=== PATIENT | female | born 1980 | race Two or more races ===

== ENCOUNTER 2018-09-21 10:01 | Outpatient (CLI) | payer OTHER ==
[~2018-09-21] VITALS: Ht 152.4 cm; Wt 71.7 kg
== END 2018-09-21 10:15 | disposition home or self-care (01) ==
LOC: OFIC 805 10:01
DX: G51.0 Bell's palsy (principal)

== ENCOUNTER 2018-09-28 05:32 | Inpatient (IN) | payer OTHER ==
[~2018-09-28] VITALS: Ht 157.5 cm; Wt 73.0 kg
== END 2018-09-30 15:56 | disposition home or self-care (01) | DRG 788 ==
LOC: LDR 05:32 → OB/GYN 12:08
PROVIDERS: ADMIT Specialist
PROC: 4A1HXCZ Monitoring of Products of Conception, Cardiac Rate, External Approach (ICD-10-PCS; 2018-09-28)
PROC: 10D00Z1 Extraction of Products of Conception, Low, Open Approach (ICD-10-PCS; principal; 2018-09-28 07:00)
DX: O34.211 Maternal care for low transverse scar from previous cesarean delivery (principal); O75.82 Onset (spontaneous) of labor after 37 completed weeks of gestation but before 39 completed weeks gestation, with delivery by (planned) cesarean section; Z3A.38 38 weeks gestation of pregnancy; Z37.0 Single live birth

== ENCOUNTER 2020-02-20 13:24 | Inpatient (IN) | payer OTHER ==
[~2020-02-20] VITALS: Ht 157.5 cm; Wt 68.9 kg
[2020-02-20] MEDS ORDERED: PRENATAL 19 TA1 EAC1 PO (15:19)
[2020-02-20] MEDS ORDERED: INTEGRA PLUS C1 EACH PO (15:19)
== END 2020-02-21 10:55 | disposition home or self-care (01) | DRG 833 ==
LOC: LDR 13:24
PROVIDERS: ADMIT Specialist; ATTEND Specialist
PROC: 4A1HXCZ Monitoring of Products of Conception, Cardiac Rate, External Approach (ICD-10-PCS; principal; 2020-02-20)
DX: O60.03 Preterm labor without delivery, third trimester (principal); Z3A.29 29 weeks gestation of pregnancy; Z20.828 Contact with and (suspected) exposure to other viral communicable diseases

== ENCOUNTER 2020-04-24 05:35 | Inpatient (IN) | payer OTHER ==
[~2020-04-24] VITALS: Ht 157.5 cm; Wt 2.7 kg
[~2020-04-24 05:35] MED LIST: INTEGRA PLUS C1 EACH PO; PRENATAL 19 TA1 EAC1 PO
[2020-04-24] MEDS ORDERED: AMPICILLIN SOD500 MG PO (06:09)
[2020-04-24] MEDS ORDERED: NIFEDIPINE20 MG PO (06:09)
== END 2020-04-26 15:00 | disposition home or self-care (01) | DRG 788 ==
LOC: LDR 05:35 → OB/GYN 05:35 → O/R 09:08 → OB/GYN 10:32
PROVIDERS: ADMIT Specialist; ATTEND Specialist
PROC: 4A1HXFZ Monitoring of Products of Conception, Cardiac Rhythm, External Approach (ICD-10-PCS; 2020-04-24)
PROC: 3E033VJ Introduction of Other Hormone into Peripheral Vein, Percutaneous Approach (ICD-10-PCS; 2020-04-24)
PROC: 10D00Z1 Extraction of Products of Conception, Low, Open Approach (ICD-10-PCS; principal; 2020-04-24 10:45)
DX: O99.824 Streptococcus B carrier state complicating childbirth (principal); Z3A.38 38 weeks gestation of pregnancy; Z37.0 Single live birth; O34.211 Maternal care for low transverse scar from previous cesarean delivery